=== PATIENT | female | born 1985 | race Caucasian/White ===

== ENCOUNTER 2019-05-01 16:29 | Emergency (ER) | payer SELFPAY ==
[~2019-05-01] VITALS: Ht 162.6 cm; Wt 75.0 kg
[~2019-05-01 16:29] MED LIST: ZOFRAN ODT4 MG PO; ZPAK PO
[2019-05-01 18:00] VITALS: BP 125/79
== END 2019-05-01 18:00 | disposition home or self-care (01) | DRG 153 ==
LOC: ED 16:29
DX: J06.9 Acute upper respiratory infection, unspecified (principal)

== ENCOUNTER 2022-07-19 09:30 | Emergency (ER) | payer OTHER ==
[~2022-07-19] VITALS: Ht 162.6 cm; Wt 65.7 kg
[2022-07-19] MEDS ORDERED: ZPAK PO (10:48)
[2022-07-19 10:53] VITALS: BP 126/83
== END 2022-07-19 11:04 | disposition home or self-care (01) ==
LOC: ED 09:30
DX: U07.1 COVID-19 (principal); J06.9 Acute upper respiratory infection, unspecified

== ENCOUNTER 2022-12-06 10:12 | Emergency (ER) | payer OTHER ==
[~2022-12-06] VITALS: Ht 162.6 cm; Wt 74.8 kg
[2022-12-06 10:21] VITALS: BP 116/73
[2022-12-06] MEDS ORDERED: CETIRIZINE5 MG PO (10:21)
[2022-12-06 10:30] VITALS: BP 109/66
[2022-12-06 10:45] VITALS: BP 104/73
[2022-12-06] MEDS ORDERED: ZITHROMAX250 MG PO (10:50)
[2022-12-06 11:00] VITALS: BP 107/60
== END 2022-12-06 11:05 | disposition home or self-care (01) ==
LOC: ED 10:12
DX: J02.0 Streptococcal pharyngitis (principal); Z20.822 Contact with and (suspected) exposure to COVID-19